=== PATIENT | female | born 1990 | race Two or more races ===

== ENCOUNTER 2018-04-14 12:30 | Emergency (ER) | payer MEDICAID ==
[2018-04-14 12:50] VITALS: BP 119/66
--- NOTE | 2018-04-14 13:28 | EDM.PDOC ---
ED HPI GENERAL MEDICAL PROBLEM - General Chief Complaint: Lower Extremity Injury/Pain Stated Complaint: RIGHT LEG BRUISED Time Seen by Provider: 04/14/18 13:15 Source of Information: Reports: Patient History Limitations: Reports: No Limitations - History of Present Illness INITIAL COMMENTS - FREE TEXT/NARRATIVE: Ratna presents today for injury and bruising to lateral right knee. 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 Musculoskeletal History: Reports: Fracture, Other (See Below) Other Musculoskeletal History: finger vericious veins Dermatologic History: Reports: Other (See Below) Other Dermatologic History: lichinplantis - Infectious Disease History Infectious Disease History: Reports: Chicken Pox Social & Family History - Tobacco Use Smoking Status *Q: Never Smoker Second Hand Smoke Exposure: No - Caffeine Use Caffeine Use: Reports: Coffee, Tea - Alcohol Use Days Per Week of Alcohol Use: 0 - Recreational Drug Use Recreational Drug Use: No Review of Systems - Review of Systems Review Of Systems: See Below Constitutional: Denies: Chills, Diaphoresis, Fever, Weakness Eyes: Reports: No Symptoms Ears: Reports: No Symptoms Nose: Reports: No Symptoms Mouth/Throat: Reports: No Symptoms Respiratory: Denies: Shortness of Breath, Wheezing, Cough, Sputum, Hemoptysis Cardiovascular: Reports: No Symptoms GI/Abdominal: Reports: No Symptoms Genitourinary: Reports: No Symptoms Musculoskeletal: Reports: Leg Pain, Other (ecchymosis to right lateral knee with tenderness. She denies dec) Skin: Reports: Bruising, Other (no active hemorrhage, expanding or pulsatile hematoma, no bruit or thrill over wound, no extremity ischemia, bilateral pedal pulses equal and strong. ). Denies: Pallor, Diaphoresis, Pruritis, Rash, Erythema, Wound, Lesions Neurological: Reports: No Symptoms Psychiatric: Reports: No Symptoms ED EXAM, GENERAL - Physical Exam Exam: See Below Free Text/Narrative:: Ratna is an alert and oriented 28 year old female who presents today after initial injury to her right leg on Tuesday. She reports she was walking her dog and the dog (chrissy) accidentally struck her on the right side of her right knee. She reports she had a difficult time walking on Tuesday and has had intermittent burning pain since then. She had tried ice without benefit. She reports large bruise and is worried about a blood clot. She denies fever, chills, SOB or difficulty breathing. Exam Limited By: No Limitations General Appearance: Alert, WD/WN, No Apparent Distress Eye Exam: Bilateral Eye: EOMI, Normal Inspection, PERRL Ears: Normal External Exam, Normal Canal, Hearing Grossly Normal, Normal TMs Ear Exam: Bilateral Ear: Auricle Normal, Canal Normal, TM normal Throat/Mouth: Normal Inspection, Normal Lips, Normal Teeth, Normal Gums, Normal Oropharynx, Normal Voice, No Airway Compromise Neck: Normal Inspection, Supple, Non-Tender, Full Range of Motion. No: Lymphadenopathy (R), Lymphadenopathy (L) Respiratory/Chest: No Respiratory Distress, Lungs Clear, Normal Breath Sounds, No Accessory Muscle Use, Chest Non-Tender Cardiovascular: Normal Peripheral Pulses, Regular Rate, Rhythm, No Edema, No Gallop, No Murmur, No Rub Peripheral Pulses: 2+: Radial (L), Radial (R), Dorsalis Pedis (L), Dorsalis Pedis (R) GI/Abdominal: Normal Bowel Sounds, Soft, Non-Tender, No Distention, No Abnormal Bruit Back Exam: Normal Inspection, Full Range of Motion. No: CVA Tenderness (R), CVA Tenderness (L) Extremities: Normal Inspection, Normal Range of Motion, No Pedal Edema, Normal Capillary Refill, Other (Dark purple ecchymosis noted to right lateral knee. ). No: Topher's Sign, Limited Range of Motion, Increased Warmth Neurological: Alert, Oriented, CN II-XII Intact, Normal Cognition, Normal Gait, Normal Reflexes, No Motor/Sensory Deficits Psychiatric: Normal Affect, Normal Mood Skin Exam: Warm, Dry, Intact, Ecchymosis. No: Cyanosis, Erythema, Increased Warmth, Mottled, Pallor, Rash Lymphatic: Other (no active hemorrhage, expanding or pulsatile hematoma, no bruit or thrill over wound, no extremity ischemia, bilateral pedal pulses equal and strong. Area of ecchymosis 9cm x 4cm in size, without fluctuance.) Course - Vital Signs Last Recorded V/S: Last Vital Signs Temp 36.6 C 04/14/18 13:10 Pulse 81 04/14/18 13:10 Resp 15 04/14/18 13:10 BP 119/66 04/14/18 13:10 Pulse Ox 94 L 04/14/18 13:10 - Orders/Labs/Meds Labs: Laboratory Tests 04/14/18 04/14/18 Range/Units 13:30 13:30 WBC 8.3 (4.5-11.0) K/uL RBC 4.28 (3.30-5.50) M/uL Hgb 13.8 (12.0-15.0) g/dL Hct 40.9 (36.0-48.0) % MCV 96 (80-98) fL MCH 32 H (27-31) pg MCHC 34 (32-36) % Plt Count 193 (150-400) K/uL Neut % (Auto) 60 (36-66) % Lymph % (Auto) 25 (24-44) % [place] % (Auto) 9 H (2-6) % Eos % (Auto) 6 H (2-4) % Baso % (Auto) 0 (0-1) % Sodium 140 (140-148) mmol/L Potassium 4.3 (3.6-5.2) mmol/L Chloride 104 (100-108) mmol/L Carbon Dioxide 28 (21-32) mmol/L Anion Gap 8.1 (5.0-14.0) mmol/L BUN 9 (7-18) mg/dL Creatinine 0.8 (0.6-1.0) mg/dL Est Cr Clr Drug Dosing 79.46 mL/min Estimated GFR (MDRD) > 60 (>60) Glucose 82 (74-106) mg/dL Calcium 8.5 (8.5-10.1) mg/dL No acute findings with lab work. - Re-Assessments/Exams Free Text/Narrative Re-Assessment/Exam: 04/14/18 14:16 Lab work and status reviewed with patient, all her questions were answered. She is in agreement with plan. Departure - Departure Time of Disposition: 14:16 Disposition: Home, Self-Care 01 Condition: Good Clinical Impression: Hematoma and contusion, Pain in lateral right lower extremity - Discharge Information Instructions: Contusion, [id number] Referrals: PCP,None [Primary Care Provider] - Forms: ED Department Discharge, ED Return to Work/School Form Additional Instructions: You have been evaluated and treated for pain of the right lateral leg, hematoma and contusion. It would be best to apply heat to the area of bruising for 20 minutes at a time several times a day to help with comfort, pain and assist in healing. Use of elvis wrap to right knee can also help. Take acetaminophen 1000mg by mouth three times a day for pain as needed. Return to work on Tuesday without restriction. Return to the emergency room for worsening, issues or concerns. - Assessment/Plan Assessment:: Hematoma and contusion Pain right lateral lower extremity Elvis wrap Plan: Patient evaluated and treated for pain of the right lateral leg, hematoma and contusion. It would be best to apply heat to the area of bruising for 20 minutes at a time several times a day to help with comfort, pain and assist in healing. Use of elvis wrap to right knee can also help. Take acetaminophen 1000mg by mouth three times a day for pain as needed. Return to work on Tuesday without restriction. Return to the emergency room for worsening, issues or concerns.
== END 2018-04-14 14:31 | disposition home or self-care (01) ==
LOC: JP.ED 12:30
DX: S80.01XA Contusion of right knee, initial encounter (principal); X58.XXXA Exposure to other specified factors, initial encounter
CPT/HCPCS: 36415; 80048; 85025; 99284

== ENCOUNTER 2018-06-10 10:59 | Emergency (ER) | payer MEDICAID ==
[2018-06-10 11:11] VITALS: BP 125/76
--- NOTE | 2018-06-10 12:02 | EDM.PDOC ---
<Aurora Echavarria N - Last Filed: 06/10/18 12:12> ED HPI GENERAL MEDICAL PROBLEM - General Chief Complaint: Fever Stated Complaint: FEVER/CHEST CONGESTIONS/FATIGUED Time Seen by Provider: 06/10/18 11:25 - History of Present Illness INITIAL COMMENTS - FREE TEXT/NARRATIVE: Ratna is an otherwise well 28-year-old female who presents today with multiple concerns. She is primarily concerned that she may be , as she has been having unprotected sex and missed her last period. Reports breast tenderness and pain following intercourse. She has been with the same sexual partner for the past 12 years, but is uncertain whether she may have been exposed to STDs and states, "I do not want to take any chances." She also states that she began having fevers after spending prolonged time in the sun five days ago. Maximum temperature reported was 102.6, and she medicated herself with aspirin. The fevers have since resolved, but the patient reports ongoing productive cough with previous hemoptysis, wheezing, muscle aches, and generalized malaise. Denies recent tickbites or other illnesses. 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 Musculoskeletal History: Reports: Fracture, Other (See Below) Other Musculoskeletal History: finger vericious veins Dermatologic History: Reports: Other (See Below) Other Dermatologic History: lichinplantis - Infectious Disease History Infectious Disease History: Reports: Chicken Pox Social & Family History - Tobacco Use Smoking Status *Q: Never Smoker - Caffeine Use Caffeine Use: Reports: Coffee - Alcohol Use Days Per Week of Alcohol Use: 7 Number of Drinks Per Day: 1 Total Drinks Per Week: 7 - Recreational Drug Use Recreational Drug Use: No ED ROS GENERAL - Review of Systems Review Of Systems: See Below Constitutional: Reports: Fever, Malaise, Weakness, Fatigue, Decreased Appetite HEENT: Denies: Ear Discharge, Ear Pain, Rhinitis, Sinus Problem, Throat Pain Respiratory: Reports: Wheezing, Pleuritic Chest Pain, Cough, Sputum, Hemoptysis. Denies: Shortness of Breath Cardiovascular: Reports: No Symptoms Endocrine: Reports: Fatigue GI/Abdominal: Reports: Decreased Appetite. Denies: Abdominal Pain, Bloody Stool , Constipation, Diarrhea, Hematemesis, Hematochezia, Melena, Nausea, Vomiting : Denies: Frequency, Hematuria, Incontinence, Pain, Urgency Musculoskeletal: Reports: Muscle Pain. Denies: Joint Swelling, Muscle Stiffness Skin: Reports: No Symptoms. Denies: Change in Hair/Nails, Lesions Neurological: Reports: Dizziness, Headache Psychiatric: Reports: No Symptoms Hematologic/Lymphatic: Reports: No Symptoms Immunologic: Reports: No Symptoms ED EXAM, GENERAL - Physical Exam Exam: See Below Exam Limited By: No Limitations General Appearance: Alert, WD/WN, No Apparent Distress Eye Exam: Bilateral Eye: EOMI, Normal Inspection, PERRL Ears: Normal External Exam, Normal Canal, Hearing Grossly Normal, Normal TMs Ear Exam: Bilateral Ear: Auricle Normal, Canal Normal, TM normal Nose: Normal Inspection, Normal Mucosa, No Blood. No: Nasal Drainage, Clear Rhinorrhea Throat/Mouth: Normal Inspection, Normal Gums, Normal Oropharynx Head: Atraumatic, Normocephalic Neck: Normal Inspection, Supple, Non-Tender, Full Range of Motion Respiratory/Chest: No Respiratory Distress, Lungs Clear, Normal Breath Sounds Cardiovascular: Regular Rate, Rhythm, No Edema, No Gallop, No Murmur, No Rub GI/Abdominal: Normal Bowel Sounds, Soft, Non-Tender, No Distention, No Mass (Female) Exam: Deferred Rectal (Female) Exam: Deferred Neurological: Alert, Oriented, CN II-XII Intact, Normal Cognition, Normal Gait, No Motor/Sensory Deficits Psychiatric: Normal Affect, Normal Mood Skin Exam: Warm, Dry, Intact Lymphatic: No Adenopathy Course - Vital Signs Last Recorded V/S: Last Vital Signs Temp 97.5 C H 06/10/18 11:10 Pulse 78 06/10/18 11:10 Resp BP 125/76 06/10/18 11:10 Pulse Ox - Orders/Labs/Meds Orders: Active Orders 24 hr Category Date Time Status CHLAMYDIA/GC AMPLIFICATION Stat Lab 06/10/18 12:15 Received HCG QUALITATIVE,URINE [URCHEM] Stat Lab 06/10/18 11:49 Ordered UA W/MICROSCOPIC [URIN] Stat Lab 06/10/18 11:49 Ordered WET PREP [MYC] Stat Lab 06/10/18 12:15 Ordered Labs: Laboratory Tests 06/10/18 06/10/18 06/10/18 Range/Units 11:49 11:49 12:19 WBC 8.2 (4.5-11.0) K/uL RBC 4.29 (3.30-5.50) M/uL Hgb 13.9 (12.0-15.0) g/dL Hct 40.6 (36.0-48.0) % MCV 95 (80-98) fL MCH 32 H (27-31) pg MCHC 34 (32-36) % Plt Count 220 (150-400) K/uL Neut % (Auto) 58 (36-66) % Lymph % (Auto) 29 (24-44) % [place] % (Auto) 11 H (2-6) % Eos % (Auto) 3 (2-4) % Baso % (Auto) 0 (0-1) % Sodium (140-148) mmol/L Potassium (3.6-5.2) mmol/L Chloride (100-108) mmol/L Carbon Dioxide (21-32) mmol/L Anion Gap (5.0-14.0) mmol/L BUN (7-18) mg/dL Creatinine (0.6-1.0) mg/dL Est Cr Clr Drug Dosing mL/min Estimated GFR (MDRD) (>60) Glucose (74-106) mg/dL Calcium (8.5-10.1) mg/dL Total Bilirubin (0.2-1.0) mg/dL AST (15-37) U/L ALT (12-78) U/L Alkaline Phosphatase (46-116) U/L Total Protein (6.4-8.2) g/dL Albumin (3.4-5.0) g/dL Globulin (2.3-3.5) g/dL Albumin/Globulin Ratio (1.2-2.2) Urine Color Yellow Urine Appearance Clear Urine pH 8.0 (4.5-8.0) Ur Specific [place] 1.005 L (1.008-1.030) Urine Protein Negative (NEGATIVE) mg/dL Urine Glucose (UA) Normal (NEGATIVE) mg/dL Urine Ketones Negative (NEGATIVE) mg/dL Urine Occult Blood Negative (NEGATIVE) Urine Nitrite Negative (NEGATIVE) Urine Bilirubin Negative (NEGATIVE) Urine Urobilinogen Normal (NORMAL) mg/dL Ur Leukocyte Esterase Negative (NEGATIVE) Urine RBC Not seen (0-5) Urine WBC Not seen (0-5) Ur Epithelial Cells Rare Amorphous Sediment Not seen Urine Bacteria Not seen Urine Mucus Not seen Urine HCG, Qual Negative 06/10/18 Range/Units 12:19 WBC (4.5-11.0) K/uL RBC (3.30-5.50) M/uL Hgb (12.0-15.0) g/dL Hct (36.0-48.0) % MCV (80-98) fL MCH (27-31) pg MCHC (32-36) % Plt Count (150-400) K/uL Neut % (Auto) (36-66) % Lymph % (Auto) (24-44) % [place] % (Auto) (2-6) % Eos % (Auto) (2-4) % Baso % (Auto) (0-1) % Sodium 138 L (140-148) mmol/L Potassium 4.4 (3.6-5.2) mmol/L Chloride 102 (100-108) mmol/L Carbon Dioxide 25 (21-32) mmol/L Anion Gap 15.4 H (5.0-14.0) mmol/L BUN 5 L (7-18) mg/dL Creatinine 0.8 (0.6-1.0) mg/dL Est Cr Clr Drug Dosing 79.46 mL/min Estimated GFR (MDRD) > 60 (>60) Glucose 88 (74-106) mg/dL Calcium 9.0 (8.5-10.1) mg/dL Total Bilirubin 0.5 (0.2-1.0) mg/dL AST 20 (15-37) U/L ALT 23 (12-78) U/L Alkaline Phosphatase 87 (46-116) U/L Total Protein 7.7 (6.4-8.2) g/dL Albumin 3.8 (3.4-5.0) g/dL Globulin 3.9 H (2.3-3.5) g/dL Albumin/Globulin Ratio 1.0 L (1.2-2.2) Urine Color Urine Appearance Urine pH (4.5-8.0) Ur Specific [place] (1.008-1.030) Urine Protein (NEGATIVE) mg/dL Urine Glucose (UA) (NEGATIVE) mg/dL Urine Ketones (NEGATIVE) mg/dL Urine Occult Blood (NEGATIVE) Urine Nitrite (NEGATIVE) Urine Bilirubin (NEGATIVE) Urine Urobilinogen (NORMAL) mg/dL Ur Leukocyte Esterase (NEGATIVE) Urine RBC (0-5) Urine WBC (0-5) Ur Epithelial Cells Amorphous Sediment Urine Bacteria Urine Mucus Urine HCG, Qual Departure - Departure Disposition: DC/Tfer to [id number] Clinical Impression: Bacterial vaginosis, Cough - Discharge Information Instructions: Bacterial Vaginosis, [id number], Upper Respiratory Infection, Adult, [id number] Referrals: PCP,None [Primary Care Provider] - Forms: ED Department Discharge Additional Instructions: You have been evaluated and treated for bacterial vaginosis and cough. Take flagyl (metronidazole) as directed for bacterial vaginosis. You are provided a prescription for diflucan 150mg PO once for signs of vaginal yeast infection if needed. Keep yourself hydrated with plenty of water, gatorade. Use mucinex 600mg by mouth twice pre day for cough. Use albuterol inhaler three times a day as needed wheezing. Make an appointment to establish care with a primary provider in the next 7 days for a recheck, fertility/women's health concerns. We will notify you of your other testing once they are completed. Return for worsening, issues or concerns. <Mini Horan - Last Filed: 06/10/18 20:05> ED HPI GENERAL MEDICAL PROBLEM - General Source of Information: Reports: Patient History Limitations: Reports: No Limitations ED ROS GENERAL - Review of Systems Review Of Systems: See Below ED EXAM, GENERAL - Physical Exam Free Text/Narrative:: Ratna is an alert and oriented 28 year old female presenting with complaints of recent overheating 5 to 7 days ago, cough with clear to green mucus production, pain to low pelvis and irregular periods. She denies risk for sexually transmitted diseases at this time. She does voice concerns of fertility issues due to her irregular periods. She has not tried any OTC medications or herbals to help her symptoms. She reports she does not have a primary provider. Peripheral Pulses: 2+: Radial (L), Radial (R), Dorsalis Pedis (L), Dorsalis Pedis (R) Back Exam: Normal Inspection, Full Range of Motion. No: CVA Tenderness (R), CVA Tenderness (L) Extremities: Normal Inspection, Normal Range of Motion, Non-Tender, No Pedal Edema, Normal Capillary Refill Skin Exam: Normal Color, No Rash Course - Orders/Labs/Meds Labs: Laboratory Tests 06/10/18 06/10/18 06/10/18 Range/Units 11:49 11:49 12:19 WBC 8.2 (4.5-11.0) K/uL RBC 4.29 (3.30-5.50) M/uL Hgb 13.9 (12.0-15.0) g/dL Hct 40.6 (36.0-48.0) % MCV 95 (80-98) fL MCH 32 H (27-31) pg MCHC 34 (32-36) % Plt Count 220 (150-400) K/uL Neut % (Auto) 58 (36-66) % Lymph % (Auto) 29 (24-44) % [place] % (Auto) 11 H (2-6) % Eos % (Auto) 3 (2-4) % Baso % (Auto) 0 (0-1) % Sodium (140-148) mmol/L Potassium (3.6-5.2) mmol/L Chloride (100-108) mmol/L Carbon Dioxide (21-32) mmol/L Anion Gap (5.0-14.0) mmol/L BUN (7-18) mg/dL Creatinine (0.6-1.0) mg/dL Est Cr Clr Drug Dosing mL/min Estimated GFR (MDRD) (>60) Glucose (74-106) mg/dL Calcium (8.5-10.1) mg/dL Total Bilirubin (0.2-1.0) mg/dL AST (15-37) U/L ALT (12-78) U/L Alkaline Phosphatase (46-116) U/L Total Protein (6.4-8.2) g/dL Albumin (3.4-5.0) g/dL Globulin (2.3-3.5) g/dL Albumin/Globulin Ratio (1.2-2.2) Urine Color Yellow Urine Appearance Clear Urine pH 8.0 (4.5-8.0) Ur Specific [place] 1.005 L (1.008-1.030) Urine Protein Negative (NEGATIVE) mg/dL Urine Glucose (UA) Normal (NEGATIVE) mg/dL Urine Ketones Negative (NEGATIVE) mg/dL Urine Occult Blood Negative (NEGATIVE) Urine Nitrite Negative (NEGATIVE) Urine Bilirubin Negative (NEGATIVE) Urine Urobilinogen Normal (NORMAL) mg/dL Ur Leukocyte Esterase Negative (NEGATIVE) Urine RBC Not seen (0-5) Urine WBC Not seen (0-5) Ur Epithelial Cells Rare Amorphous Sediment Not seen Urine Bacteria Not seen Urine Mucus Not seen Urine HCG, Qual Negative 06/10/18 Range/Units 12:19 WBC (4.5-11.0) K/uL RBC (3.30-5.50) M/uL Hgb (12.0-15.0) g/dL Hct (36.0-48.0) % MCV (80-98) fL MCH (27-31) pg MCHC (32-36) % Plt Count (150-400) K/uL Neut % (Auto) (36-66) % Lymph % (Auto) (24-44) % [place] % (Auto) (2-6) % Eos % (Auto) (2-4) % Baso % (Auto) (0-1) % Sodium 138 L (140-148) mmol/L Potassium 4.4 (3.6-5.2) mmol/L Chloride 102 (100-108) mmol/L Carbon Dioxide 25 (21-32) mmol/L Anion Gap 15.4 H (5.0-14.0) mmol/L BUN 5 L (7-18) mg/dL Creatinine 0.8 (0.6-1.0) mg/dL Est Cr Clr Drug Dosing 79.46 mL/min Estimated GFR (MDRD) > 60 (>60) Glucose 88 (74-106) mg/dL Calcium 9.0 (8.5-10.1) mg/dL Total Bilirubin 0.5 (0.2-1.0) mg/dL AST 20 (15-37) U/L ALT 23 (12-78) U/L Alkaline Phosphatase 87 (46-116) U/L Total Protein 7.7 (6.4-8.2) g/dL Albumin 3.8 (3.4-5.0) g/dL Globulin 3.9 H (2.3-3.5) g/dL Albumin/Globulin Ratio 1.0 L (1.2-2.2) Urine Color Urine Appearance Urine pH (4.5-8.0) Ur Specific [place] (1.008-1.030) Urine Protein (NEGATIVE) mg/dL Urine Glucose (UA) (NEGATIVE) mg/dL Urine Ketones (NEGATIVE) mg/dL Urine Occult Blood (NEGATIVE) Urine Nitrite (NEGATIVE) Urine Bilirubin (NEGATIVE) Urine Urobilinogen (NORMAL) mg/dL Ur Leukocyte Esterase (NEGATIVE) Urine RBC (0-5) Urine WBC (0-5) Ur Epithelial Cells Amorphous Sediment Urine Bacteria Urine Mucus Urine HCG, Qual Patient lab work reviewed with her. No acute indication of systemic infection, hemorrhage. She does have bacterial vaginosis, cough with mucus production otherwise normal breath sounds and no respiratory distress. Departure - Departure Time of Disposition: 12:53 Condition: Good - Discharge Information *PRESCRIPTION DRUG MONITORING PROGRAM REVIEWED*: Not Applicable *COPY OF PRESCRIPTION DRUG MONITORING REPORT IN PATIENT OSMAN: Not Applicable - Assessment/Plan Assessment:: Bacterial vaginosis Cough Plan: Patient evaluated and treated for bacterial vaginosis and cough. Take flagyl (metronidazole) as directed for bacterial vaginosis. Patient provided a prescription for diflucan 150mg PO once for signs of vaginal yeast infection if needed. Keep hydrated with plenty of water, gatorade. Use mucinex 600mg by mouth twice per day for cough. Use albuterol inhaler three times a day as needed wheezing. Make an appointment to establish care with a primary provider in the next 7 days for a recheck, fertility/women's health concerns. Return for worsening, issues or concerns.
== END 2018-06-10 13:31 ==
LOC: JP.ED 10:59
DX: N76.0 Acute vaginitis (principal); R05 Cough
CPT/HCPCS: 36415; 80053; 81001; 81025; 85025; 87210; 87491; 87591; 99284

== ENCOUNTER 2019-05-05 21:48 | Emergency (ER) | payer MEDICAID ==
[2019-05-05 22:18] VITALS: BP 118/87
--- NOTE | 2019-05-05 22:39 | EDM.PDOC ---
ED HPI GENERAL MEDICAL PROBLEM - General Chief Complaint: Bite:Animal, Insect Stated Complaint: TICK ON BACK Time Seen by Provider: 05/05/19 22:25 Source of Information: Reports: Patient History Limitations: Reports: No Limitations - History of Present Illness INITIAL COMMENTS - FREE TEXT/NARRATIVE: 29-year-old female presents with her daughter for evaluation of a tick bite with residual headache in her axilla. Patient believes the tick has been there for about 48 hours. She states the tick was rather large was likely a wood tick and not a deer tick. Her attempted to remove the tick but believes the head is imbedded in right right axilla. Patient has some slight discomfort in the area. She has a history of lichen planus and increased risk of cellulitis. Patient feels fine fever chills sweats but does not feel ill. 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 ED EXAM, ANIMAL BITE - Physical Exam Exam: See Below Exam Limited By: No Limitations General Appearance: Alert, WD/WN, No Apparent Distress Head: Normocephalic Neck: Normal Inspection, Full Range of Motion Respiratory/Chest: No Respiratory Distress Cardiovascular: Normal Peripheral Pulses Back Exam: Normal Inspection, Full Range of Motion, NT Extremities: Normal Inspection, Normal Range of Motion, Other (left axilla multiple abrasions noted with very small tick head imbedded in tissue ) Neurological: Alert, Oriented, CN II-XII Intact, Normal Cognition Psychiatric: Normal Affect, Normal Mood Skin Exam: Warm/Dry, DRY, I, Normal Color, NR ED ANIMAL BITE PROCEDURES - Foreign Body Removal Indication:: Imbedded tick head imbedded after attempted removal at home Consent Obtained: Patient Anesthesia Type: Local (lidocaine 1 cc without epi) Findings:: wheal of lidocaine placed in area, splinter forcep was used to remove scabbing and small tick head was removed and confirmed using magnifying glass. Bandage applied. Course - Vital Signs Last Recorded V/S: Last Vital Signs Temp 36.2 C 05/05/19 22:25 Pulse 66 05/05/19 22:25 Resp 16 05/05/19 22:25 BP 118/87 05/05/19 22:25 Pulse Ox 99 05/05/19 22:25 Departure - Departure Time of Disposition: 22:40 Disposition: Home, Self-Care 01 Clinical Impression: Tick bite of axillary region - Discharge Information Prescriptions: Doxycycline [Vibramycin] 100 mg PO DAILY 1 Days #2 cap Instructions: Tick Bite Information, Adult, [id number] Referrals: PCP,None [Primary Care Provider] - 3 Days (PCP wound check in 3-5 days to ensure no signs of cellulitis or continued infection ) Forms: ED Department Discharge Additional Instructions: 1. Topical Antibiotic ointment every am and pm to prevent infection. 2. Doxycycline 100mg 1 tab po once for prevention of lyme disease. 3. Read information about lyme which is unlikely with a wood tick which is much larger than a deer tick. 4. Monitor for signs of cellulitis including red, warm swelling, drainage with increased pain and fever
== END 2019-05-05 22:49 | disposition home or self-care (01) ==
LOC: JP.ED 21:48
DX: S40.862A Insect bite (nonvenomous) of left upper arm, initial encounter (principal); W57.XXXA Bitten or stung by nonvenomous insect and other nonvenomous arthropods, initial encounter
CPT/HCPCS: 99282

== ENCOUNTER 2020-09-20 12:23 | Emergency (ER) | payer MEDICAID ==
--- NOTE | 2020-09-20 12:51 | EDM.PDOC ---
ED HPI GENERAL MEDICAL PROBLEM - General Chief Complaint: Upper Extremity Injury/Pain Stated Complaint: SWOLLEN PAINFUL LEFT WRIST Time Seen by Provider: 09/20/20 12:52 Source of Information: Reports: Patient History Limitations: Reports: No Limitations - History of Present Illness INITIAL COMMENTS - FREE TEXT/NARRATIVE: 30-year-old female who is 2 months presents with a left wrist pain and swelling and she is concerned about a blood clot. 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 She denies any upper arm swelling or pain. She has no other increased risk for DVT. She does use her hands frequently throughout the day. She denies any other problems. She finds that warm water improves her discomfort and pinching and tight grasp makes it worse. She also notes that stretching improves her pain. She is using Tylenol for pain. 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) Musculoskeletal: Reports: Other (Pain and swelling of the left wrist.) Neurological: Reports: Other (No numbness or weakness.) ED EXAM, GENERAL - Physical Exam Exam: See Below Exam Limited By: No Limitations General Appearance: Alert, WD/WN, No Apparent Distress Respiratory/Chest: No Respiratory Distress, No Accessory Muscle Use Cardiovascular: Other (Normal peripheral pulses.) Extremities: Other (She has pain and swelling over the extensor tendon of the left wrist. She has a positive Rocco test.) Neurological: Other (She has normal strength and sensation of the left upper extremity.) Skin Exam: Other (Skin color is normal. Her skin is dry and warm.) Course - Vital Signs Text/Narrative:: This patient has an extensor tendinitis from overuse of the left wrist. She is left-handed. She was given a Velcro wrist splint and told to use Tylenol as needed for pain. She will rest her left wrist as much as possible and over the next few days that should improve. If she notes any increased symptoms or problems she will follow up in the clinic. She can return to the ER if she has increased problems or concerns. The patient agreed with this plan. Last Recorded V/S: Last Vital Signs Temp 35.9 C L 09/20/20 12:35 Pulse 61 09/20/20 12:35 Resp 16 09/20/20 12:35 BP 125/69 09/20/20 12:35 Pulse Ox 98 09/20/20 12:35 - Orders/Labs/Meds Orders: Active Orders 24 hr Category Date Time Status DME for Discharge [COMM] Stat Oth 09/20/20 12:48 Ordered Departure - Departure Time of Disposition: 12:49 Disposition: Home, Self-Care 01 Condition: Good Clinical Impression: Tendinitis of extensor tendon of left hand - Discharge Information *PRESCRIPTION DRUG MONITORING PROGRAM REVIEWED*: No *COPY OF PRESCRIPTION DRUG MONITORING REPORT IN PATIENT OSMAN: No Instructions: Tendinitis, [id number] Referrals: PCP,None [Primary Care Provider] - Forms: ED Department Discharge, ED Return to Work/School Form Sepsis Event Note (ED) - Evaluation Sepsis Screening Result: No Definite Risk - Focused Exam Vital Signs: Vital Signs Temp Pulse Resp BP Pulse Ox 09/20/20 12:35 35.9 C L 61 16 125/69 98 - My Orders Last 24 Hours: My Active Orders 09/20/20 12:48 DME for Discharge [COMM] Stat - Assessment/Plan Last 24 Hours: My Active Orders 09/20/20 12:48 DME for Discharge [COMM] Stat
[2020-09-20 13:09] VITALS: BP 122/75; PULSE 74
== END 2020-09-20 13:05 | disposition home or self-care (01) ==
LOC: JP.ED 12:23
DX: M77.9 Enthesopathy, unspecified (principal)
CPT/HCPCS: 99283

== ENCOUNTER 2021-03-17 14:46 | Emergency (ER) | payer MEDICAID ==
[2021-03-17 15:16] VITALS: BP 110/80; PULSE 65
--- NOTE | 2021-03-17 16:16 | EDM.PDOC ---
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 Ratna thinks she and her infant son each have colds. There has not been a fever. Due to her sx's she is not allowed to return to work without a doctor's note due to Covid fears. Onset: Gradual Onset Date: 03/16/21 Duration: Hour(s):, Constant Location: Reports: Face (nose) Quality: Reports: Other (no pain) Severity: Mild Improves with: Reports: None Worsens with: Reports: None Context: Reports: Other (See HPI) Associated Symptoms: Reports: Other (nasal congestion, sneezing, non-purulent drainage. ). 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 Musculoskeletal History: Reports: Fracture Other Musculoskeletal History: finger vericious veins Dermatologic History: Reports: Cellulitis, Other (See Below) Other Dermatologic History: lichinplantis - Infectious Disease History Infectious Disease History: Reports: Chicken Pox Social & Family History - Tobacco Use Tobacco Use Status *Q: Never Tobacco User - Caffeine Use Caffeine Use: Reports: None - Recreational Drug Use Recreational Drug Use: No ED ROS GENERAL - Review of Systems Review Of Systems: See Below Constitutional: Denies: Fever, Chills HEENT: Reports: Rhinitis, Other (congestion) Respiratory: Reports: No Symptoms Cardiovascular: Reports: No Symptoms Skin: Reports: No Symptoms ED EXAM, GENERAL - Physical Exam Exam: See Below Exam Limited By: No Limitations General Appearance: Alert, WD/WN, No Apparent Distress Eye Exam: Bilateral Eye: Normal Inspection Ears: Normal External Exam, Normal Canal, Hearing Grossly Normal, Normal TMs Ear Exam: Bilateral Ear: Auricle Normal, Canal Normal, TM normal Nose: Other (slightly inflamed nasal mucosa. Clear discharge. Moderate congestion noted. ) Throat/Mouth: Normal Inspection, Normal Lips, Normal Oropharynx, Normal Voice, No Airway Compromise Head: Atraumatic, Normocephalic Neck: Normal Inspection Respiratory/Chest: No Respiratory Distress, Lungs Clear, Normal Breath Sounds, No Accessory Muscle Use Cardiovascular: Regular Rate, Rhythm Neurological: Alert, Oriented, CN II-XII Intact, Normal Cognition, No Motor/Sensory Deficits Psychiatric: Normal Affect, Normal Mood Skin Exam: Warm, Dry, Intact, Normal Color, No Rash Course - Vital Signs Last Recorded V/S: Last Vital Signs Temp 36.3 C 03/17/21 15:51 Pulse 65 03/17/21 15:51 Resp 18 03/17/21 15:51 BP 110/80 03/17/21 15:51 Pulse Ox 95 03/17/21 15:51 - Orders/Labs/Meds Orders: Active Orders 24 hr Category Date Time Status Isolation [COMM] Stat Oth 03/17/21 16:00 Ordered Labs: Laboratory Tests 03/17/21 Range/Units 16:22 SARS CoV-2 RNA Rapid DANIELLA Negative Departure - Departure Time of Disposition: 16:36 Disposition: Home, Self-Care 01 Condition: Good Clinical Impression: Viral URI - Discharge Information Referrals: PCP,None [Primary Care Provider] - Forms: ED Department Discharge Additional Instructions: Drink ample fluids. Frequent hand washing. Recheck as needed. Sepsis Event Note (ED) - Evaluation Sepsis Screening Result: No Definite Risk - Focused Exam Vital Signs: Vital Signs Temp Pulse Resp BP Pulse Ox 03/17/21 15:51 36.3 C 65 18 110/80 95 03/17/21 15:15 36.3 C 65 18 110/80 95 - My Orders Last 24 Hours: My Active Orders 03/17/21 16:00 Isolation [COMM] Stat - Assessment/Plan Last 24 Hours: My Active Orders 03/17/21 16:00 Isolation [COMM] Stat
== END 2021-03-17 16:50 | disposition home or self-care (01) ==
LOC: JP.ED 14:46
DX: J06.9 Acute upper respiratory infection, unspecified (principal); Z20.822 Contact with and (suspected) exposure to COVID-19
CPT/HCPCS: 99283; U0002